=== PATIENT | male | born 1950 | race Caucasian/White ===

== ENCOUNTER → 2019-03-02 11:26 | Outpatient (CLI) | payer MEDICARE, SELFPAY ==
--- NOTE | 2019-03-02 11:55 | RAD_ITS ---
STUDY: X-RAY - LUMBAR SPINE REASON FOR EXAM: Male, 68 years old. Back pain. TECHNIQUE: 3 view(s) of the lumbar spine were obtained. COMPARISON: None FINDINGS: Normal lumbar lordosis. There is a mild dextroscoliosis of the lumbar spine. There is a normal alignment of the vertebrae. There is multilevel endplate spondylosis of the lumbar vertebrae. There is multi-level degenerative disc disease with multi-level disc space narrowing. The patient is status post laminectomy and interpedicular screw fixation at the L2-L3, L3-L4 and L4-L5 levels. The gayathri is fractured at the L3-L4 disc space level. There is atherosclerotic calcification of the abdominal aorta without a demonstrated aneurysm. RAD/Lumbar Spine 2 or 3 Views IMPRESSION: Degenerative changes of the spine, as detailed above. Status post laminectomy and fusion at multiple levels with fracture of the rods at the L3-L4 level. Electronically Signed: Zak Bear, at 15:21 EDT , Service support ,
[2019-03-02 12:56] LABS: Amphetamine Urine VISTA NEGATIVE (<1000 ng/mL); Barbiturate Urine VISTA NEGATIVE (< 200 ng/mL); Benzodiazepine Urine VISTA NEGATIVE (< 200 ng/mL); Cocaine Urine VISTA NEGATIVE (< 300 ng/mL); Ecstacy Urine VISTA NEGATIVE (< 500 ng/mL); Methadone Urine VISTA NEGATIVE (< 300 ng/mL); PCP Urine VISTA NEGATIVE (< 25 ng/mL); THC Urine VISTA NEGATIVE (< 50 ng/mL); Vista UDS pH Range 6
== END ==
PROVIDERS: Family Provider Family Medicine; PCP Family Medicine; Referring Provider Anesthesiology Pain Medicine; Visit Provider Anesthesiology Pain Medicine
DX: F11.20 Opioid dependence, uncomplicated (principal); M54.9 Dorsalgia, unspecified
CPT/HCPCS: 72100; 80307

== ENCOUNTER → 2019-03-11 14:41 | Outpatient (CLI) | payer MEDICARE, SELFPAY ==
--- NOTE | 2019-03-11 14:50 | CT_ITS ---
STUDY: CT LUMBAR SPINE WITHOUT CONTRAST REASON FOR EXAM: Male, 68 years old. Back pain and prior lumbar fusion. RADIATION DOSAGE (If Supplied By Facility): CTDIvol = ( 10.07 ) mGy, DLP = ( 252.26 ) mGycm TECHNIQUE: The patient was scanned in a multi detector CT scanner. High resolution transaxial imaging was performed. Images were obtained from thoracic to sacrum. Sagittal and coronal images were reconstructed. Individualized dose optimization techniques were used for this CT. COMPARISON: Lumbar spine radiograph March 02, 2019 FINDINGS: Normal lumbar lordosis. Mild dextroconvex scoliosis, moderate spondylosis and multilevel degenerative disc disease. Laminectomies and posterior interbody fusions L2-L5. The posterior fusion rods appear to be fractured bilaterally at L3-4. Normal vertebrae of the lumbar spine. L1-2: Disc space narrowing and retrolisthesis. Central canal and neural foramina patent. L2-3: Normal endplates. Normal disc height and morphology. Normal bilateral facet joints. Normal central canal and bilateral lateral recesses. Normal bilateral intervertebral neural foramina. Chondrocalcinosis of the disc. L3-4: Normal endplates. Normal disc height and morphology. Normal bilateral facet joints. Normal central canal and bilateral lateral recesses. Normal bilateral intervertebral neural foramina. L4-5: Slight anterior subluxation. Chondrocalcinosis of the disc space. Central canal and neural foramina patent. L5-S1: Disc space narrowing and vacuum disc phenomenon. Neural foramina are severely narrowed bilaterally. Central canal patent. Normal visualized paraspinous soft tissue structures. CT/Spine Lumbar without Contrast IMPRESSION: Laminectomies L2-L5. Postsurgical and degenerative changes as above. Fractured hardware at L3-4 bilaterally. Electronically Signed: Rell Desai MD at 17:58 EDT , Service support ,
== END ==
LOC: CT 14:46
PROVIDERS: Family Provider Family Medicine; PCP Family Medicine; Referring Provider Anesthesiology Pain Medicine; Visit Provider Anesthesiology Pain Medicine
DX: M54.9 Dorsalgia, unspecified (principal)
CPT/HCPCS: 72131

== ENCOUNTER → 2019-05-24 08:20 | Outpatient (CLI) | payer MEDICARE, SELFPAY ==
[2019-05-24 08:04] VITALS: BMI 19.8
--- NOTE | 2019-05-24 08:21 | RAD_ITS ---
STUDY: X-RAY - LUMBAR SPINE REASON FOR EXAM: Male, 68 years old. Low back pain TECHNIQUE: 4 view(s) of the lumbar spine were obtained, with flexion and extension.. COMPARISON: 03/02/2019 FINDINGS: Diffuse demineralization. Stable postoperative changes of posterior fusion hardware at L2, L3, L4, and L5. Normal curvature and alignment. Very minimal motion with flexion and extension. No subluxations. Dextroconvex scoliosis of the visualized thoracic spine. No compression fractures. There is atherosclerotic calcification of the abdominal aorta without a demonstrated aneurysm. RAD/L/S Spine Min 4 Views IMPRESSION: No change and no acute abnormality. Extensive postsurgical changes. Extensive degenerative changes. Electronically Signed: Thiago Zapata MD at 16:08 EDT , Service support ,
== END ==
LOC: HPRAD 08:21
PROVIDERS: Family Provider Family Medicine; PCP Family Medicine; Referring Provider Orthopaedic Surgery; Visit Provider Orthopaedic Surgery
DX: Z98.1 Arthrodesis status (principal)
CPT/HCPCS: 72110

== ENCOUNTER → 2019-11-29 08:33 | Outpatient (CLI) | payer MEDICARE, SELFPAY ==
[2019-05-24 08:04] VITALS: BMI 19.8
--- NOTE | 2019-11-29 08:36 | AAVD_ITS ---
Reason For Study: History of AAA Aorta Measurements Aorta Doppler Measurements Proximal aorta measures1.25 x 1.26cm. in cross- Peak systolic flow velocities within the proximal sectional axis. aorta measure 73.2 cm/sec. Proximal aorta measures1.25cm. in longitudinal Peak systolic flow velocities within the mid aorta axis. measure 114.4 cm/sec. Mid aorta measures2.83 x 2.87cm. in cross- Peak systolic flow velocities within the distal sectional axis. aorta measure 90.6 cm/sec. Mid aorta measures2.72cm. in longitudinal axis. Distal aorta measures1.66 x 1.88cm. in cross- sectional axis. Distal aorta measures1.54cm. in longitudinal axis. Left Iliac Artery Left iliac artery measures 0.71 x 0.74 cm. in the cross-sectional axis. Left iliac artery measures 0.72 cm. in the longitudinal axis. Peak systolic velocity in the left iliac artery measures 108.8 cm/sec. Right Iliac Artery Right iliac artery measures 0.73 x 0.85 cm. in the cross-sectional axis. Right iliac artery measures 1.00 cm. in the longitudinal axis. Peak systolic velocity in the right iliac artery measures 101.5 cm/sec. Procedure Aorta IVC Iliac vasculature or bypass grafts 11730. Exam performed in department. Interpretation Summary The intra-abdominal aorta appears to be ectatic, though not frankly aneurysmal. The maximal diameter of the intra-abdominal aorta is 2.87 centimeters. The iliac arteries appear to be normal in caliber bilaterally. The intra-abdominal aorta and iliac arteries appear patent, demonstrating normal, pulsatile arterial flow and normal peak systolic velocities. Ordering Physician: Nito Hancock Referring Physician: Nito Hancock Performed By: Carmen Pereira RVT
== END ==
LOC: CVS 08:34
PROVIDERS: Family Provider Family Medicine; PCP Family Medicine; Referring Provider Family Medicine; Visit Provider Family Medicine
DX: I10 Essential (primary) hypertension (principal); Z86.79 Personal history of other diseases of the circulatory system
CPT/HCPCS: 93978